=== PATIENT | male | born 1965 | race Caucasian/White ===

== ENCOUNTER 2018-03-30 08:36 | Inpatient (IN) | payer OTHER ==
[~2018-03-30] VITALS: Ht 170.2 cm; Wt 72.1 kg
--- NOTE | 2018-03-30 08:42 | NUR ---
GTUBE REPLACEMENT. PER REPORT PULLED OUT THIS AM
[2018-03-30] MEDS ORDERED: IV NS 0.9% 500 ML BAG IV ONE (09:00)
[2018-03-30] MEDS ORDERED: DOCU50LI GT (09:08)
[2018-03-30] MEDS ORDERED: OXAN10TA GT (09:08)
[2018-03-30] MEDS ORDERED: LEVE100S GT (09:08)
[2018-03-30] MEDS ORDERED: POLY17PO4 GT (09:08)
[2018-03-30] MEDS ORDERED: AMIO200T4 GT (09:08)
[2018-03-30] MEDS ORDERED: ACET-868 GT ×2 (09:08)
[2018-03-30] MEDS ORDERED: FURO-145 GT (09:08)
[2018-03-30] MEDS ORDERED: BISA10SU8 RC (09:08)
[2018-03-30] MEDS ORDERED: BETH10TA GT (09:08)
[2018-03-30] MEDS ORDERED: MULT-447 GT (09:08)
[2018-03-30] MEDS ORDERED: GABA-534 GT (09:08)
[2018-03-30] MEDS ORDERED: IPRA3AMP23 IH ×2 (09:08)
[2018-03-30] MEDS ORDERED: MAGN400O6 GT (09:08)
[2018-03-30] MEDS ORDERED: CHLO473M5 MM (09:08)
[2018-03-30] MEDS ORDERED: HYDR-552 GT (09:08)
[2018-03-30] MEDS ORDERED: ACET-2605 GT (09:08)
[2018-03-30] MEDS ORDERED: NA P133E RC (09:11)
--- NOTE | 2018-03-30 09:17 | NUR ---
CALLED NURSING SUP FOR MIDLINE PLACEMENT
[2018-03-30 09:24] LABS: BASOPHILS % (AUTO) 0.3 % (0.0-2.0); EOSINOPHILS % (AUTO) 1.9 % (0.0-6.0); HEMATOCRIT 39 % (39-51); HEMOGLOBIN 13.2 g/dL (13.5-17.5); LYMPHOCYTES # (AUTO) 1.1 /CMM (0.8-4.8); LYMPHOCYTES % (AUTO) 9.5 % (20.0-44.0); MEAN CORPUSCULAR HGB CONC 34 g/dl (31.0-36.0); MEAN CORPUSCULAR VOLUME 77 fL (80-96); MONOCYTES # (AUTO) 0.7 /CMM (0.1-1.30); MONOCYTES % (AUTO) 5.8 % (2.0-12.0); NEUTROPHILS % (AUTO) 82.5 % (43.0-81.0); PLATELET COUNT (AUTO) 439 /CMM (150-450); RDW COEFFICIENT OF VARIATION 18.6 (11.5-15.0); RED BLOOD CELL COUNT(AUTO) 5.08 MIL/uL (4.5-6.0)
[2018-03-30 09:39] LABS: CALCIUM, SERUM 9.6 mg/dL (8.5-10.1); CREATININE 1.1 mg/dL (0.6-1.3); POTASSIUM 4.5 mmol/L (3.5-5.1)
[2018-03-30 09:47] LABS: INR 0.9 (0.87-1.13)
[2018-03-30 09:53] LABS: LYMPHOCYTES % (MANUAL) 5 % (16-48); MONOCYTES % (MANUAL) 2 % (0-11.0); NEUTROPHILS % (MANUAL) 93 (42-76)
--- NOTE | 2018-03-30 10:09 | NUR ---
VERBAL ORDER DR DÍAZ DC IV NS 500 ML UNABLE TO START IV ACCESS. DR ARLIN GRIGSBY WILL PUT MIDLINE WHEN ADMITTED
[2018-03-30] MEDS ORDERED: IV NS 0.9% 1,000 ML IV PRN ×2 (10:38→11:12)
[2018-03-30 11:00] VITALS: BP 100/55
[2018-03-30] MEDS ORDERED: Z GUARD REMEDY 2 OZ OINT TP PRN (11:00)
[2018-03-30] MEDS ORDERED: MAGNESIUM HYDROXIDE 30 ML UDC PO PRN (11:00)
[2018-03-30] MEDS ORDERED: BISACODYL SUPP (10 MG) 10 MG/SUPP.RECT SUPP.RECT RC PRN (11:00)
[2018-03-30] MEDS ORDERED: ACETAMINOPHEN 325 MG TABLET PO PRN (11:00)
[2018-03-30] MEDS ORDERED: MAG HYDROX/AL HYDROX/SIMETH 30 ML UDC PO PRN (11:00)
[2018-03-30] MEDS ORDERED: HYDROCODONE/APAP 5/325MG 1 EACH TABLET PO PRN (11:00)
[2018-03-30] MEDS ORDERED: ONDANSETRON HCL/PF 4 MG/2 ML VIAL IVP PRN (11:00)
[2018-03-30] MEDS ORDERED: NA PHOS,M-B/NA PHOS,DI-BA 1 EA ENEMA RC PRN (11:00)
--- NOTE | 2018-03-30 11:03 | NUR ---
MS RETAIL MORTGAGE BANKER NOTES RECEIVED PT FROM ER NURSE IN STABLE CONDITION. PT IS A/O X2-3. NO SOB OR SIGNS OF DISTRESS NOTED. BREATHING IS EVEN AND UNLABORED. PT ON 2L COOL AEROSOL VIA TRACH. MULTIPLE SKIN ISSUES NOTED AND DOCUMENTED IN CHART. WOUND CONSULT ORDERED. PT WAS BE ADMITTED FOR GT MALFUNCTION. DREDGE ENGINEER MADE AWARE THAT PT IS ON FLOOR. BED IN LOW LOCKED POSITION, SIDE RAILS UP X3, CALL LIGHT WITHIN REACH, BED ALARM ON. WILL CONTINUE TO MONITOR AND COMPLETE ADMISSION .
[2018-03-30] MEDS ORDERED: IPRATROPIUM NEB FS 0.5 MG/2.5 ML AMPUL.NEB NEB PRN (12:00)
[2018-03-30] MEDS: BETHANECHOL CHLORIDE (10 MG) 10 MG TABLET GT SCH ×2 (13:00→16:12)
[2018-03-30] MEDS: GABAPENTIN 300 MG CAPSULE GT SCH ×2 (13:00→21:00)
--- NOTE | 2018-03-30 13:08 | NUR ---
Isabel Rivera RN NOTES 1300 MEDICATIONS WERE NOT ADMINISTERED PT IS NPO AND NO GTUBE SITE AVAILABLE AT THIS TIME.
[2018-03-30] MEDS ORDERED: ALBUTEROL FS 2.5 MG/0.5 ML VIAL.NEB NEB PRN (13:30)
[2018-03-30] MEDS: IPRATROPIUM NEB FS 0.5 MG/2.5 ML AMPUL.NEB NEB SCH ×2 (14:08→20:53)
[2018-03-30] MEDS: ALBUTEROL FS 2.5 MG/0.5 ML VIAL.NEB NEB SCH ×2 (14:08→20:53)
--- NOTE | 2018-03-30 15:58 | NUR ---
MS RN NOTES: MIDLINE INSERTION DR. GRIGSBY REMINDED OF MIDLINE INSERTION PT HAS NO IV ACCESS AND IS UNABLE TO RECEIVE IV FLUIDS AND MEDICATIONS. AWAITING RESPONSE
--- NOTE | 2018-03-30 16:42 | NUR ---
MS RN NOTES: MIDLINE INSERTION F/U NO WORD FROM DR GRIGSBY. ACCORDING TO THE NURSING ONLINE MERCHANDISER, "HE STATED THAT HE WOULD INSERT IT ONCE THE PT ARRIVED FROM THE ED. I WILL F/U"
--- NOTE | 2018-03-30 17:26 | NUR ---
MS RN NOTES: MIDLINE F/U CONT. DR. GRIGSBY WAS AGAIN CONTACTED BY THE NURSING SSN/SSBN ASSISTANT NAVIGATOR. PER MD "PT DOES NOT NEED MIDLINE". ICU NURSE WAS CONTACTED TO ATTEMPT TO INSERT ANOTHER LINE AND WILL COME DOWN ONCE FREE
--- NOTE | 2018-03-30 18:53 | NUR ---
MS RN CLOSING NOTES PT REMAINS STABLE SINCE ADMISSION. HE STILL HAS NO IV SITE. NIGHTSHIFT NURSE TO ATTEMPT IV INSERTION. VITALS STABLE SINCE ADMISSION. NPO STATUS MAINTAINED. SAFETY MEASURES IN PLACE. WILL ENDORSE TO NIGHTSHIFT NURSE FOR HARINI
--- NOTE | 2018-03-30 19:40 | NUR ---
MS RN NOTES RECEIVED ON BED A/O X1-2,WITH CAPPED TRACH,NO SALINE LOCK,WITH MULTIPLE SCAR NOTED ON HIS BODY DUE TO ACCIDENT.GT SITE DRESSING INTACT AND DRY.NPO STATUS.FOR SWALLOW EVAL.GT WAS ACCIDENTALLY PULLED OUT,POSSIBLE PLACEMENT ON SUNDAY.SEIZURE PRECAUTION OBSERVED,SIDE RAILS X2 PADDED FOR SAFETY.CALL LIGHT IN REACH,NEEDS ANTICIPATED.
[2018-03-30 20:00] VITALS: BP 105/57
--- NOTE | 2018-03-30 20:00 | NUR ---
MS RN NOTES NEW SALINE LOCK PLACE ON LEFT WRIST #22,WILL START NS AT 50ML/HR RATE ORDERED.
--- NOTE | 2018-03-30 20:50 | NUR ---
MS RN NOTES STARTED ON NS 50ML/HR RATE VIA IV PUMP.
[2018-03-30] MEDS ORDERED: OXANDROLONE 10 MG TABLET GT SCH (21:00)
[2018-03-30] MEDS: LEVETIRACETAM SOL (5 ML) 100 MG/ML UDC GT SCH (21:00)
[2018-03-30] MEDS: AMIODARONE HCL 200 MG TABLET GT SCH (21:00)
[2018-03-30] MEDS: CHLORHEXIDINE GLUCONATE 15 ML UDC MM SCH (21:03)
--- NOTE | 2018-03-30 21:15 | NUR ---
MS RN NOTES AMBULATE TO THE BATHROOM WITH ASSIST,WITH STEADY GAIT.
--- NOTE | 2018-03-30 21:30 | NUR ---
MS RN NOTES URINE FOR U/A COLLECTED,SENT TO LAB
--- NOTE | 2018-03-30 21:45 | NUR ---
MS RN NOTES DRESSING CHANGE DONE TO RIGHT FOOT NECROTIC TOES,WRAPPED WITH KERLIX.
--- NOTE | 2018-03-31 01:00 | NUR ---
MS RN NOTES SALINE LOCK ACCIDENTALLY PULLED OUT.WITH URGENCY TO GO TO THE TOILET.HE DOESNT WANT TO USE THE URINAL
[2018-03-31] MEDS: ALBUTEROL FS 2.5 MG/0.5 ML VIAL.NEB NEB SCH ×4 (02:48→19:38)
[2018-03-31] MEDS: IPRATROPIUM NEB FS 0.5 MG/2.5 ML AMPUL.NEB NEB SCH ×4 (02:48→19:38)
[2018-03-31] MEDS: GABAPENTIN 300 MG CAPSULE GT SCH ×3 (05:00→21:00)
--- NOTE | 2018-03-31 06:30 | NUR ---
MS RN NOTES NEW SALINE LOCK PLACE ON RIGHT FOREARM #22.REFUSED IVF THIS TIME.
[2018-03-31 06:44] LABS: APPEARANCE,URINE CLEAR (CLEAR); BILIRUBIN,URINE NEGATIVE (NEGATIVE); BLOOD, URINE NEGATIVE Ery/uL (NEGATIVE); COLOR,URINE YELLOW (YELLOW); KETONES,URINE NEGATIVE (NEGATIVE); LEUKOCYTE ESTERASE ,URINE NEGATIVE (NEGATIVE); NITRITE, URINE NEGATIVE (NEGATIVE); PROTEIN,URINE NEGATIVE (NEGATIVE); UGLUCOSE NEGATIVE (NEGATIVE)
[2018-03-31 06:52] LABS: BACTERIA,URINE None seen /HPF (None Seen); RBC,URINE 0-2 /HPF (0-2); SQUAMOUS EPITHELIAL CELL,UR 0-2 /HPF (None Seen); WBC,URINE 0-2 /HPF (0-3)
--- NOTE | 2018-03-31 06:56 | NUR ---
MS RN NOTES FALL RISK,BED ALARM TRIGGERED,ASSIST TO THE TOILET,CAPPED TRACH.WOUND CONSULT FOR RIGHT FOOT WOUND.SWALLOW EVAL,GT OUT.IN NO ACUTE DISTRESS.WILL ENDORSE TO ESPERANZA ROMAN FOR HARINI.
--- NOTE | 2018-03-31 07:15 | NUR ---
MSRN NOTES. PT NPO. PT RECEIVED A&0X2, PT REMOVED NC BUT IS TOLERATING ROOM AIR WITHOUT S/S OF RESP DISTRESS. PT DENIES PAIN AND IS WITHOUT S/S OF DISTRESS OR DISCOMFORT. PT WITH IVC AT R FA INTACT AND SALINE FLUSH PATENT. PT WITH CAPPED TRACH. PT BED IN LOWEST LOCKED POSITION AND PT REQUESTED TO CALL BEFORE AMBULATION, BED ALARM ENGAGED. PT BRIEFED ON TODAY'S POC AND IS WITHOUT CONCERN OR COMPLAINT.
[2018-03-31 07:23] LABS: BASOPHILS % (AUTO) 0.5 % (0.0-2.0); EOSINOPHILS % (AUTO) 2.8 % (0.0-6.0); HEMATOCRIT 40 % (39-51); HEMOGLOBIN 13.2 g/dL (13.5-17.5); LYMPHOCYTES # (AUTO) 2.1 /CMM (0.8-4.8); LYMPHOCYTES % (AUTO) 20.4 % (20.0-44.0); MEAN CORPUSCULAR HGB CONC 33 g/dl (31.0-36.0); MEAN CORPUSCULAR VOLUME 78 fL (80-96); MONOCYTES # (AUTO) 1.2 /CMM (0.1-1.30); MONOCYTES % (AUTO) 11.6 % (2.0-12.0); NEUTROPHILS # (AUTO) 6.6 /CMM (1.8-8.9); NEUTROPHILS % (AUTO) 64.7 % (43.0-81.0); PLATELET COUNT (AUTO) 375 /CMM (150-450); RDW COEFFICIENT OF VARIATION 19.9 (11.5-15.0); RED BLOOD CELL COUNT(AUTO) 5.09 MIL/uL (4.5-6.0); WHITE BLOOD COUNT (AUTO) 10.1 K/uL (4.3-11.0)
[2018-03-31 07:43] LABS: ALBUMIN 3.3 g/dL (3.4-5.0); BILIRUBIN,TOTAL 0.6 mg/dL (0.2-1.0); CALCIUM, SERUM 9.4 mg/dL (8.5-10.1); CREATININE 1.2 mg/dL (0.6-1.3); MAGNESIUM 2.1 mg/dL (1.8-2.4); PHOSPHORUS 4.7 mg/dL (2.5-4.9); POTASSIUM 4.1 mmol/L (3.5-5.1); TOTAL PROTEIN, SERUM 7.8 g/dL (6.4-8.2)
[2018-03-31 08:00] VITALS: BP 108/59
[2018-03-31] MEDS: AMIODARONE HCL 200 MG TABLET GT SCH ×2 (08:37→21:00)
[2018-03-31] MEDS: BETHANECHOL CHLORIDE (10 MG) 10 MG TABLET GT SCH ×3 (08:38→16:11)
[2018-03-31] MEDS: LEVETIRACETAM SOL (5 ML) 100 MG/ML UDC GT SCH ×2 (08:38→21:00)
[2018-03-31] MEDS ORDERED: FUROSEMIDE 20 MG TABLET GT SCH (09:00)
[2018-03-31] MEDS: CHLORHEXIDINE GLUCONATE 15 ML UDC MM SCH ×2 (09:00→21:18)
[2018-03-31] MEDS ORDERED: MULTIVIT, IRON, MIN NO. 8, FA 1 TAB GT SCH (09:00)
[2018-03-31] MEDS ORDERED: DOCUSATE SODIUM LIQ 100 MG/10 ML UDC GT SCH (09:00)
[2018-03-31] MEDS ORDERED: POLYETHYLENE GLYCOL 3350 17 GM POWD.PACK GT SCH (09:00)
--- NOTE | 2018-03-31 10:00 | NUR ---
MSRN NOTES. PT NOTED WITH RASH, SKIN ASSESSMENT PHOTOS SHOW PRESENT ON ADMISSION, WOUND CONSULT ALREADY REQUESTED, MORTGAGE ANALYST NOTIFIED.
[2018-03-31 10:31] LABS: THYROID STIMULATING HORMONE 0.821 uIU/mL (0.358-3.74)
[2018-03-31 16:00] VITALS: BP 110/65
--- NOTE | 2018-03-31 17:00 | NUR ---
MSRN NOTES. PT REMOVED IVC. NAD AT SITE. RNX2 ATTEMPTED REPLACEMENT WITH ACCUVEIN. MIDLINE PLACED BY DR GRIGSBY.
--- NOTE | 2018-03-31 18:54 | NUR ---
MSRN NOTES. PT REMAINS A&0X3, NPO AND WATCHING T.V. PT TOLERATING ROOM AIR AND DENIES PAIN, PT WITHOUT S/S OF DISTRESS OR DISCOMFORT. PT NOW WITH MIDLINE, FLUIDS RUNNING PER RX. ALL DAY NURSE DUTIES ATTENDED TO AND PT IS WITHOUT CONCERN OR COMPLAINT AT THIS TIME. BED IN LOWEST LOCKED POSITION WITH HDANRAILSX3 AND CALL HERNANDEZ WITHIN REACH. WILL ENDORSE TO NIGHT NURSE AT BEDSIDE FOR HARINI.
--- NOTE | 2018-03-31 19:30 | NUR ---
RECEIVED PT IN BED AWAKE AND ALERT. TRACH IN PLACE. BREATHING EVENLY. NO SOB. NAD .NO C/O PAIN OR DISCOMFORT. BED LOW LOCKED. CALL LIGHT WITHIN REACH. WILL CONT TO MONITOR ,
--- NOTE | 2018-03-31 19:38 | NUR ---
FOUND PT ON ROOM AIR WITH PMV. Q6 BREATHING GIVEN WITH NO ADVERSE REACTION NOTED. COOL AEROSOL AT BEDSIDE DUE TO PT REMOVING OXYGEN TUBING. PT SHOWS SIGNS OF RESP DISTRESS. WILL CONT TO MONITOR PT.
[2018-03-31 20:00] VITALS: BP 124/74
[2018-04-01] MEDS: IPRATROPIUM NEB FS 0.5 MG/2.5 ML AMPUL.NEB NEB SCH ×4 (01:30→20:08)
[2018-04-01] MEDS: ALBUTEROL FS 2.5 MG/0.5 ML VIAL.NEB NEB SCH ×4 (01:30→20:08)
[2018-04-01] MEDS: GABAPENTIN 300 MG CAPSULE GT SCH (05:00)
[2018-04-01 06:50] LABS: ALBUMIN 3.1 g/dL (3.4-5.0); BILIRUBIN,DIRECT 0.2 mg/dL (0.0-0.2); BILIRUBIN,TOTAL 0.7 mg/dL (0.2-1.0); CALCIUM, SERUM 9.1 mg/dL (8.5-10.1); POTASSIUM 4.2 mmol/L (3.5-5.1); TOTAL PROTEIN, SERUM 7.1 g/dL (6.4-8.2)
--- NOTE | 2018-04-01 06:59 | NUR ---
PT IN BED SLEEPING, AROUSES EASILY. REMAINED STABLE W/ NO ACUTE EVENT DURING THE NIGHT. NPO. AWAITING FOR ST EVAL. ALL PO MEDS WERE HELD . NEEDS ATTENDED . WILL CONT TO MONITOR AND WILL ENDORSE TO AM SHIFT FOR HARINI.
--- NOTE | 2018-04-01 07:15 | NUR ---
MSRN OPENING NOTES. PT NPO. PT A&0X2, PT TOLERATING ROOM AIR WITHOUT S/S OF RESP DISTRESS. PT DENIES PAIN. PT WITH MIDLINE AT UPPER R ARM. PT WITH CAPPED TRACH SHILEY 6. PT BED IN LOWEST LOCKED POSITION AND PT REQUESTED TO CALL BEFORE AMBULATION, BED ALARM ENGAGED. PT BRIEFED ON TODAY'S POC AND IS WITHOUT CONCERN OR COMPLAINT.
[2018-04-01 07:38] LABS: BASOPHILS # (AUTO) 0.1 /CMM (0.0-0.2); BASOPHILS % (AUTO) 0.7 % (0.0-2.0); EOSINOPHILS % (AUTO) 3.4 % (0.0-6.0); HEMATOCRIT 40 % (39-51); LYMPHOCYTES # (AUTO) 1.4 /CMM (0.8-4.8); LYMPHOCYTES % (AUTO) 13.8 % (20.0-44.0); MEAN CORPUSCULAR HGB CONC 33 g/dl (31.0-36.0); MEAN CORPUSCULAR VOLUME 78 fL (80-96); MONOCYTES % (AUTO) 9.7 % (2.0-12.0); NEUTROPHILS # (AUTO) 7.3 /CMM (1.8-8.9); NEUTROPHILS % (AUTO) 72.4 % (43.0-81.0); PLATELET COUNT (AUTO) 359 /CMM (150-450); RDW COEFFICIENT OF VARIATION 19.4 (11.5-15.0); RED BLOOD CELL COUNT(AUTO) 5.08 MIL/uL (4.5-6.0); WHITE BLOOD COUNT (AUTO) 10.1 K/uL (4.3-11.0)
[2018-04-01 08:00] VITALS: BP 99/54
--- NOTE | 2018-04-01 08:00 | NUR ---
MSRN NOTES. GI CONTACTED R/T POSSIBLE G TUBE PLACEMENT, NO PROCEDURE TODAY, SUPPLIER QUALITY ENGINEERING MANAGER TO RV. SPEECH THERAPY CONTACTED AND REQUESTED TO RV PT JENNIFER. ATTENDING SUPPLIER QUALITY ENGINEERING MANAGER REQUESTED TO TRANSFER MEDICATIONS TO IV WHERE POSSIBLE. WILL FOLLOW UP WITH INTER. DISC. TEAM MEMBERS.
[2018-04-01] MEDS: AMIODARONE HCL 200 MG TABLET GT SCH (09:00)
[2018-04-01] MEDS: CHLORHEXIDINE GLUCONATE 15 ML UDC MM SCH ×2 (09:00→21:45)
--- NOTE | 2018-04-01 09:00 | NUR ---
MSRN NOTES. PT NON COMPLIANT WITH CALL HERNANDEZ. PT SNAPPED IV LINE TO ACCESS BATHROOM.
--- NOTE | 2018-04-01 12:00 | NUR ---
MSRN NOTES. PT REMAINS NON COMPLIANT WITH REQUEST TO CALL PRIOR TO AMBULATING AND IS CURRENTLY REFUSING IV FLUIDS. WILL CONTINUE WHEN POSSIBLE.
[2018-04-01] MEDS ORDERED: HYDROCODONE/APAP 5/325MG 1 EACH TABLET GT PRN (12:10)
[2018-04-01] MEDS ORDERED: MAGNESIUM HYDROXIDE 30 ML UDC GT PRN (12:11)
[2018-04-01] MEDS ORDERED: MAG HYDROX/AL HYDROX/SIMETH 30 ML UDC GT PRN (12:11)
[2018-04-01] MEDS ORDERED: DOCUSATE SODIUM LIQ 100 MG/10 ML UDC PO SCH (12:14)
[2018-04-01] MEDS ORDERED: HYDROCODONE/APAP 5/325MG 1 EACH TABLET PO PRN (12:15)
[2018-04-01] MEDS ORDERED: MAG HYDROX/AL HYDROX/SIMETH 30 ML UDC PO PRN (12:16)
[2018-04-01] MEDS ORDERED: MAGNESIUM HYDROXIDE 30 ML UDC PO PRN (12:26)
[2018-04-01] MEDS ORDERED: MULTIVIT, IRON, MIN NO. 8, FA 1 TAB PO SCH (12:27)
[2018-04-01] MEDS ORDERED: POLYETHYLENE GLYCOL 3350 17 GM POWD.PACK PO SCH (12:28)
[2018-04-01] MEDS ORDERED: ACETAMINOPHEN 325 MG TABLET PO PRN (12:30)
[2018-04-01] MEDS ORDERED: ACETAMINOPHEN 650 MG/20.3 ML UDC GT PRN (12:30)
[2018-04-01] MEDS ORDERED: PHARMACY TO CHANGE GT/NG MEDS TO PO XX PRN (12:30)
[2018-04-01] MEDS ORDERED: ACETAMINOPHEN LIQUID 325 MG/10.1 ML UDC GT PRN (12:30)
[2018-04-01] MEDS: BETHANECHOL CHLORIDE (10 MG) 10 MG TABLET PO SCH ×2 (12:41→16:13)
[2018-04-01] MEDS: NICOTINE PATCH (14MG) 14 MG PATCH.TD24 TD SCH (12:41)
[2018-04-01] MEDS: GABAPENTIN 300 MG CAPSULE PO SCH ×2 (12:41→21:44)
--- NOTE | 2018-04-01 13:00 | NUR ---
MSRN NOTES. PT TOLERATED PUREE DIET WITHOUT INCIDENT.
[2018-04-01 16:00] VITALS: BP 116/64
--- NOTE | 2018-04-01 17:30 | NUR ---
MSRN NOTES. MD DOMINGA MCCAIN REQUESTING SKIN SCRAPE FOR R/O SCABIES. ISOLATION CART AND SKIN SCRAPE ORDERED. MD MARROQUIN AND PT MADE AWARE. 3 CARLOS HARDY CONACTED FOR ASSISTANCE WITH SCRAPE.
--- NOTE | 2018-04-01 18:17 | NUR ---
MSRN CLOSING NOTES. PT ON ISO R/T R/O SCABIES. PT A&0X2 AND TOLERATING ROOM AIR WITHOUT S/S OF RESP DISTRESS AND DENIES PAIN. PT WITH MIDLINE AT UPPER R ARM INTACT BUT PT REFUSING FLUIDS AT THIS TIME. PT WITH CAPPED TRACH SHILEY 6. WOUND CARE PER RX. PT TOLERATING DINNER WITHOUT CONCERN. PT BED IN LOWEST LOCKED POSITION WITH HANDRAILSX2 AND CALL HERNANDEZ WITHIN REACH AND BED ALARM ENGAGED. ALL DAY NURSE DUTIES ATTENDED TO AND PT IS WITHOUT CONCERN OR COMPLAINT. WILL ENDORSE TO NIGHT NURSE AT BEDSIDE FOR HARINI.
--- NOTE | 2018-04-01 18:30 | NUR ---
MSRN NOTES. MANUFACTURING SALES REPRESENTATIVE NEGRETTE REQUESTING ELIMITE TREATMENT THIS EVENING. ORDERS PLACED.
--- NOTE | 2018-04-01 19:30 | NUR ---
RECEIVED PT IN BED AWAKE AND ALERT. TRACH IN PLACE. BREATHING EVENLY. NO SOB. NAD .NO C/O PAIN OR DISCOMFORT. BED LOW LOCKED. CALL LIGHT WITHIN REACH. WILL CONT TO MONITOR , GOOD ISOLATION PRECAUTION AND SKIN CARE RENDERED. FOR ELIMITE APPLICATION TONIGHT,
[2018-04-01 20:00] VITALS: BP 107/61
[2018-04-01] MEDS ORDERED: PERMETHRIN 5% CRM 60 GM TUBE TP ONE (21:00)
[2018-04-01] MEDS: AMIODARONE HCL 200 MG TABLET PO SCH (21:44)
[2018-04-01] MEDS: LEVETIRACETAM SOL (5 ML) 100 MG/ML UDC PO SCH (21:45)
[2018-04-02] MEDS: ALBUTEROL FS 2.5 MG/0.5 ML VIAL.NEB NEB SCH ×3 (01:30→14:41)
[2018-04-02] MEDS: IPRATROPIUM NEB FS 0.5 MG/2.5 ML AMPUL.NEB NEB SCH ×3 (01:30→14:41)
[2018-04-02] MEDS: GABAPENTIN 300 MG CAPSULE PO SCH ×2 (05:30→12:40)
--- NOTE | 2018-04-02 07:06 | NUR ---
PT IN BED SLEEPING . STABLE W/ NO ACUTE EVENT DURING THE NIGHT . NEEDS ATTENDED AND ASSISTED W/ ADLS. REPORT GIVEN TO LEÓN FOR HARINI .
--- NOTE | 2018-04-02 07:19 | NUR ---
MS/RN Patient received Patient received from supervisor poultry hatchery. Appears comfortable, in no respiratory distress at this time. Safety measures in place, will continue to monitor and ensure safety. Call ligth within reach.
[2018-04-02 08:00] VITALS: BP 90/46
[2018-04-02 08:35] VITALS: BP 90/46
[2018-04-02] MEDS: AMIODARONE HCL 200 MG TABLET PO SCH (09:00)
--- NOTE | 2018-04-02 09:00 | NUR ---
MS/RN Medications Morning medications administered, no problems swallowing.
[2018-04-02] MEDS: LEVETIRACETAM SOL (5 ML) 100 MG/ML UDC PO SCH (09:03)
[2018-04-02] MEDS: NICOTINE PATCH (14MG) 14 MG PATCH.TD24 TD SCH (09:03)
[2018-04-02] MEDS: CHLORHEXIDINE GLUCONATE 15 ML UDC MM SCH (09:03)
[2018-04-02] MEDS: BETHANECHOL CHLORIDE (10 MG) 10 MG TABLET PO SCH ×3 (09:04→17:00)
--- NOTE | 2018-04-02 10:00 | NUR ---
MS/RN S/B Dr Castro Seen by Dr Castro - patient to be discharged to home as able to tolerate puree diet with nectar thickened liquids. manager package made aware.
--- NOTE | 2018-04-02 10:50 | NUR ---
MS/RN S/B Dr Cifuentes LOCKER ROOM MANAGER Seen by surgery - no new orders.
--- NOTE | 2018-04-02 14:30 | NUR ---
MS/RN Pictures Pictures taken ready discharge, all wound care carried out at the same time.
--- NOTE | 2018-04-02 15:00 | NUR ---
MS/RN Report Report called to Christie at [facility].
[2018-04-02 15:57] VITALS: BP 95/61
[2018-04-02 16:00] VITALS: BP 95/61
--- NOTE | 2018-04-02 18:36 | NUR ---
MS/RN End note All needs attended, will endorse to nightclub manager. All paperwork completed ready for discharge to [facility], awaiting transport.
== END 2018-04-02 19:25 | DRG 252 ==
LOC: ER 08:39 → MEDSG2 10:11
PROVIDERS: ADMIT Nurse Practitioner Acute Care; ATTEND Nurse Practitioner Acute Care
PROC: 05H633Z Insertion of Infusion Device into Left Subclavian Vein, Percutaneous Approach (ICD-10-PCS; principal; 2018-03-31)
PROC: B547ZZA Ultrasonography of Left Subclavian Vein, Guidance (ICD-10-PCS; principal; 2018-03-31)
DX: K94.23 Gastrostomy malfunction (principal); J96.10 Chronic respiratory failure, unspecified whether with hypoxia or hypercapnia; I96 Gangrene, not elsewhere classified; R13.10 Dysphagia, unspecified; N31.9 Neuromuscular dysfunction of bladder, unspecified; Y92.129 Unspecified place in nursing home as the place of occurrence of the external cause; Z95.810 Presence of automatic (implantable) cardiac defibrillator; I10 Essential (primary) hypertension; Z79.899 Other long term (current) drug therapy; D72.829 Elevated white blood cell count, unspecified; G40.909 Epilepsy, unspecified, not intractable, without status epilepticus; D50.9 Iron deficiency anemia, unspecified; Z87.828 Personal history of other (healed) physical injury and trauma; R74.0 Nonspecific elevation of levels of transaminase and lactic acid dehydrogenase [LDH]; L25.9 Unspecified contact dermatitis, unspecified cause
CPT/HCPCS: 36415; 36569; 71045-TC; 76705-TC; 80048-TC; 80053-TC; 80061-TC; 80076-TC; 81000-TC; 82728-TC; 83540-TC; 83605-TC; 83735-TC; 84100-TC; 84443-TC; 85025-TC; 85730-TC; 86850-TC; 87040-TC; 87081-TC; 87086-TC; 92526; 92611-TC; A4606; A6402; A6403; J1953; J7030; Z7610

== ENCOUNTER 2018-11-30 08:40 | Emergency (ER) | payer OTHER ==
[~2018-11-30] VITALS: Ht 162.6 cm; Wt 78.5 kg
[~2018-11-30 08:40] MED LIST: ACET-2605 GT; ACET-868 GT; AMIO200T4 GT; BETH10TA GT; BISA10SU8 RC; CHLO473M5 MM; DOCU50LI GT; FURO-145 GT; GABA-534 GT; HYDR-4384 GT; IPRA3AMP23 IH; LEVE100S GT; MAGN400O6 GT; MULT-447 GT; NA P133E RC; OXAN10TA GT; POLY17PO4 GT
[2018-11-30] MEDS ORDERED: LEVETIRACETAM (250 MG) 250 MG TABLET PO ONE ×2 (09:00→09:01)
[2018-11-30] MEDS ORDERED: LORAZEPAM 1 MG TABLET ONE (09:00)
[2018-11-30] MEDS ORDERED: LORAZEPAM 1 MG TABLET PO ONE (09:00)
--- NOTE | 2018-11-30 09:05 | NUR ---
PO meds given-Sitting up in bed - tolerated well. Able to swallow meds w/sips of water
--- NOTE | 2018-11-30 09:50 | NUR ---
[facility] ETA IS 1115 TRIP NUMBER [id number]
--- NOTE | 2018-11-30 10:30 | NUR ---
Assisted OOB - [facility]P able to void w/o any problems. Pending discharge await ambulance for rock picker
--- NOTE | 2018-11-30 11:53 | NUR ---
Awiting ambulance pickling solution maker for return trip to SNF. Report given to JESSIE Schwarz from [facility]
[2018-11-30 12:08] VITALS: BP 112/64
--- NOTE | 2018-11-30 12:09 | NUR ---
[facility] here for transport unit 168. Report To EMT Radha. Discharged to SNF no obvious distress. No acute changes from initial assessment. NO seizure activity noted during course of ER stay
== END 2018-11-30 12:08 ==
LOC: ER 08:43
DX: G40.909 Epilepsy, unspecified, not intractable, without status epilepticus (principal); Z87.09 Personal history of other diseases of the respiratory system; Z98.890 Other specified postprocedural states
CPT/HCPCS: 99283; A4606; Z7610